=== PATIENT | female | born 1960 | race Caucasian/White ===

== ENCOUNTER 2017-09-09 12:52 | Outpatient (CLI) | payer OTHER | END 2017-09-09 12:53 | disposition home or self-care (01) | LOC: BICMRI 12:52 | PROVIDERS: ATTEND Orthopaedic Surgery | DX: M25.511 Pain in right shoulder (principal); S46.011A Strain of muscle(s) and tendon(s) of the rotator cuff of right shoulder, initial encounter; M19.011 Primary osteoarthritis, right shoulder ==

== ENCOUNTER 2017-09-14 15:04 | Outpatient (CLI) | payer BC | END 2017-09-14 15:05 | disposition home or self-care (01) | LOC: BICMAMMO 15:04 | PROVIDERS: ATTEND Family Medicine | DX: R92.8 Other abnormal and inconclusive findings on diagnostic imaging of breast (principal) | CPT/HCPCS: 77063; 77067 ==

== ENCOUNTER 2017-09-22 15:19 | Outpatient (CLI) | payer OTHER ==
[2017-09-22 15:56] LABS: #Basophils 0.1 thou/uL (0.0-0.2); #Eosinphils 1.1 thou/uL (0.0-0.7); #Lymphocytes 4.6 thou/uL (1.20-3.40); #Monocytes 0.8 thou/uL (0.11-0.59); %Basophils 1.1 % (0.0-1.0); %Eosinophils 9.6 % (0.0-10.0); %Lymphocytes 39.8 % (21.0-51.0); %Monocytes 6.7 % (0.0-10.0); %Neutrophils 42.9 % (42.0-75.0); Hemoglobin 13.4 g/dL (12.0-16.0); Mean Corpuscular HGB CONC 33.6 g/dL (32.0-36.0); Mean Corpuscular Hemoglobin 32.6 pg (27.0-31.0); Platelet Count 468 thou/uL (130-400); RBC Distribution Width 12.1 % (11.5-14.5); Red Blood Cell (RBC) Count 4.11 mill/uL (4.20-5.40); White Blood Cell (WBC) Count 11.7 thou/uL (4.8-10.8)
== END 2017-09-22 15:20 | disposition home or self-care (01) ==
LOC: LABBT 15:19
PROVIDERS: ATTEND Orthopaedic Surgery
DX: Z01.810 Encounter for preprocedural cardiovascular examination (principal); Z01.812 Encounter for preprocedural laboratory examination; S46.211A Strain of muscle, fascia and tendon of other parts of biceps, right arm, initial encounter; M75.101 Unspecified rotator cuff tear or rupture of right shoulder, not specified as traumatic
CPT/HCPCS: 85025; 93005; 93010

== ENCOUNTER 2017-09-23 05:57 | Day surgery (SDC) | payer OTHER ==
[2017-09-22 15:12] VITALS: BMI 38.2
[2017-09-23] MEDS ORDERED: Fentanyl 100 MCG/2 ML VIAL ONE (06:27)
[2017-09-23] MEDS ORDERED: Midazolam HCl 2 mg/2 ml Vial ONE (06:27)
[2017-09-23] MEDS ORDERED: Clindamycin/D5W 600 mg/50 ml Premix Bag ONE (06:44)
[2017-09-23] MEDS ORDERED: Levofloxacin 500 mg/D5W 100 ml Premix Bag ONE (06:44)
[2017-09-23] MEDS ORDERED: Bupivacaine HCl 0.5%/Epinephrine 1:200,000/PF 30 ml Vial ONE (06:56)
[2017-09-23] MEDS ORDERED: Zolpidem Tartrate 5 MG TAB PO PRN (07:07)
[2017-09-23] MEDS ORDERED: Promethazine HCl 25 MG/ML VIAL IM PRN (07:07)
[2017-09-23] MEDS ORDERED: HYDROcodone/Acetaminophen 5/325 mg Tablet PO PRN ×2 (07:07)
[2017-09-23] MEDS ORDERED: Ondansetron HCl/PF 4 MG/2 ML Vial IVP PRN (07:07)
[2017-09-23] MEDS ORDERED: Ropivacaine 0.2% 550 ML 550 ML NERVE BLCK SCH (07:07)
[2017-09-23] MEDS ORDERED: Ketorolac Tromethamine 30 MG/ML VIAL IVP PRN (07:07)
[2017-09-23] MEDS ORDERED: traMADol HCl 50 MG TAB PO PRN ×2 (07:07)
[2017-09-23] MEDS ORDERED: Fentanyl 100 MCG/2 ML VIAL IV PRN (07:09)
--- NOTE | 2017-09-23 11:14 | OP ---
DATE OF PROCEDURE: 09/23/2017 PREOPERATIVE DIAGNOSES: 1. A right rotator cuff tear, full thickness supraspinatus leading edge infraspinatus. 2. Biceps tendon rupture. 3. Impingement. PROCEDURE PERFORMED: 1. Rotator cuff tear. 2. Repair double row transosseous equivalent. 3. Limited debridement subscapularis tear/decompression. STAFF: Mohsen James M.D. MANAGER NEW PRODUCT: Saleem Dickerson PA ANESTHESIA: Devlin. The patient received general endotracheal intubation with interscalene block. ESTIMATED BLOOD LOSS: 50 mL. TOURNIQUET TIME: None. IMPLANTS: A 5.5 metal [employer] corkscrew x2 and a 5.5 [employer] swivel lock. ANTIBIOTICS: Clindamycin 600 mg. COMPLICATIONS: None. HISTORY OF PRESENT ILLNESS: Ms. Jese Mena is a 57-year-old female who was working on 07/08/2017, had knee pain, rupture noted in right arm. The patient had difficulty with overhead activities. Sh jose r has been in therapy. MRI showed a full thickness supraspinatus tear without muscle atrophy, full t hickness biceps tear, chronic AC joint changes. I discussed with patient the risks and benefits of r ight rotator cuff repair, possible decompression. She understood these risks and benefits to include pain, scar, bleeding, infection, damage to vital structures, decreased range or strength, failure of procedure, need for further surgeries, despite surgical intervention. The patient understood these risks and benefits and elected to proceed. PROCEDURE IN DETAIL: Timeout was performed designating the patient's right upper extremity as the op erative site based on sight, consents, markings. After completion of timeout, the patient was umesh t to the operating room. She was prepped and draped in sterile fashion. The patient was placed in a beach chair position with bony points well padded. Right shoulder with a posterior working portal a nd anterior working portal placed to visualize inside the joint. I visualized the joint. There was synovitis which was debrided as well as the frayed edge of the labrum. There was a partial thickness tear of the subscapularis, which I debrided. We saw the stump of the biceps and saw the full thickn ess tear intraarticularly. After completion of my intra-articular scope I moved subacromially to fin d the tear which was full with supraspinatus and leading edge or half partial with the infraspinatus. We used a shaver to bleed down to bleeding bone. I then burred the undersurface of the acromion an d smoothed out the acromion. I washed, I placed my 2 medial row anchors, passed 8 stitches through a nd tied 4 horizontal mattress stitches, pulled 4 limbs and passed a double row anterior and posterior . I had good apposition of the bone. I was happy with the soft tissue position through the arc of m otion of the shoulder, I was happy with my overall repair. I then completed my procedure, I then was hed, closed with 3-0 nylon. The patient will remain in sling. Elbow, wrist, and hand motion until she follows to see me in 2 wee ks. She will be given tramadol and Slade for pain relief. The patient's outlook is guarded.
== END 2017-09-23 12:45 | disposition home or self-care (01) ==
LOC: SDC 05:57
PROVIDERS: ATTEND Orthopaedic Surgery
PROC: 0RNJ4ZZ Release Right Shoulder Joint, Percutaneous Endoscopic Approach (ICD-10-PCS; principal; 2017-09-23)
PROC: 0LM14ZZ Reattachment of Right Shoulder Tendon, Percutaneous Endoscopic Approach (ICD-10-PCS; principal; 2017-09-23)
DX: M75.121 Complete rotator cuff tear or rupture of right shoulder, not specified as traumatic (principal); M75.41 Impingement syndrome of right shoulder; S46.211A Strain of muscle, fascia and tendon of other parts of biceps, right arm, initial encounter; E78.00 Pure hypercholesterolemia, unspecified; Z79.899 Other long term (current) drug therapy; Z88.0 Allergy status to penicillin; Z88.1 Allergy status to other antibiotic agents; Z88.2 Allergy status to sulfonamides; Z88.5 Allergy status to narcotic agent; Z91.040 Latex allergy status
CPT/HCPCS: A4306; C1713; J0670; J1956; J2250; J2795; J3010; J3490; J7620